=== PATIENT | male | born 1960 | race Caucasian/White ===

== ENCOUNTER → 2020-02-24 | Outpatient (CLI) | payer SELFPAY ==
[~2020-02-24] MED LIST: ATOR10; CARI350; HYDACE5 PO
== END | disposition home or self-care (01) ==
LOC: LAB SHORT 17:23
DX: T24.232D Burn of second degree of left lower leg, subsequent encounter (principal)
CPT/HCPCS: 87070; 87075; 87205

== ENCOUNTER 2023-12-24 11:33 | Emergency (ER) | payer SELFPAY ==
[~2023-12-24] VITALS: Ht 172.7 cm; Wt 90.7 kg
[2023-12-24] MEDS ORDERED: Methocarbamol 500 MG Tab PO ONE (12:15)
[2023-12-24] MEDS ORDERED: Lidocaine 4% 1 Patch TOP ONE (12:15)
[2023-12-24] MEDS ORDERED: Ketorolac Tromethamine 30mg Vial IM ONE (12:15)
[2023-12-24] MEDS ORDERED: FentaNYL Citrate 50 MCG/ML 2 ML Injection IM ONE (12:45)
[2023-12-24] MEDS ORDERED: Robaxin750 MG PO (12:47)
[2023-12-24] MEDS ORDERED: IBUP800 PO (12:47)
[2023-12-24] MEDS ORDERED: HYDROmorphone HCl/Pf 1MG SYR IV ONE (13:45)
[2023-12-24 14:27] LABS: BASOPHILS ABSOLUTE AUTO 0.04 K/mm3 (0.00-0.23); BASOPHILS PERCENT AUTO 0 % (0-2); EOSINOPHILS ABSOLUTE AUTO 0.11 K/mm3 (0.00-0.68); EOSINOPHILS PERCENT AUTO 1 % (0-6); Hematocrit 39.6 % (37.0-53.0); Hemoglobin 13.1 g/dL (13.5-17.5); IMMATURE GRAN ABSOLUTE AUTO 0.03 K/mm3 (0.00-0.10); IMMATURE GRAN PERCENT AUTO 0 % (0-1); LYMPHOCYTES ABSOLUTE AUTO 1.04 K/mm3 (0.84-5.20); LYMPHOCYTES PERCENT AUTO 11 % (21-46); MONOCYTES PERCENT AUTO 14 % (4-13); Mean Corpuscular HGB 31.7 pg (26.0-34.0); Mean Corpuscular HGB Conc 33.1 g/dL (31.5-36.5); Mean Corpuscular Volume 96 fL (80-100); Mean Platelet Volume 10.7 fL (9.1-12.4); NEUTROPHILS ABSOLUTE AUTO 6.85 K/mm3 (1.96-9.15); NEUTROPHILS PERCENT AUTO 73 % (41-73); Platelet Count 277 K/mm3 (150-400); RDW Coefficient Variation 12.8 % (11.7-14.2); Red Blood Cell Count 4.13 M/mm3 (4.30-5.90); White Blood Cell Count 9.37 K/mm3 (4.00-11.30)
[2023-12-24 14:31] LABS: Albumin, Blood 3.3 g/dL (3.4-5.0); Albumin/Globulin Ratio 0.8 (0.8-1.8); Bilirubin, Total 0.4 mg/dL (0.1-1.0); Bun/Creatinine Ratio 30.9 (12.0-20.0); Creatinine, Blood 0.84 mg/dL (0.60-1.20); Globulin, Blood 4.3 g/dL (2.2-4.0); Potassium, Blood 4.7 mmol/L (3.5-5.5); Total Protein, Blood 7.6 g/dL (6.4-8.2)
[2023-12-24] MEDS ORDERED: Diazepam 5 MG / ML 2ML SYR IV ONE (14:50)
[2023-12-24] MEDS ORDERED: Gabapentin 300 MG Cap PO ONE (16:00)
[2023-12-24] MEDS ORDERED: Neurontin 300300 MG PO (17:02)
[2023-12-24] MEDS ORDERED: CYCL10 PO (17:02)
[2023-12-24 17:09] VITALS: BP 147/90
[2023-12-25] MEDS ORDERED: Robaxin750 MG PO (16:34)
[2023-12-25] MEDS ORDERED: LIDOCAINE1 EACH TOP (16:34)
[2023-12-25] MEDS ORDERED: PERCOCET 10-321 EA10 PO (16:34)
== END 2023-12-24 17:09 | disposition home or self-care (01) ==
LOC: ER 11:33
PROVIDERS: Physician Assistant
DX: M54.41 Lumbago with sciatica, right side (principal); M54.10 Radiculopathy, site unspecified; Z79.899 Other long term (current) drug therapy
CPT/HCPCS: 74177; 80053; 85025; 96372-59; 96374-59; 96375; 99284-25; A9270; J1885; J3010; J3360; Q9967

== ENCOUNTER 2023-12-25 13:54 | Emergency (ER) | payer SELFPAY ==
[~2023-12-25] VITALS: Ht 172.7 cm; Wt 90.7 kg
[~2023-12-25 13:54] MED LIST changes: +CYCL10 PO; +IBUP800 PO; +Neurontin 300300 MG PO; +Robaxin750 MG PO
[2023-12-25 16:15] VITALS: BP 110/68
[2023-12-25] MEDS ORDERED: PERCOCET 10-321 EA10 PO (16:34)
[2023-12-25] MEDS ORDERED: LIDOCAINE1 EACH TOP (16:34)
[2023-12-25] MEDS ORDERED: Robaxin750 MG PO (16:34)
== END 2023-12-25 16:45 | disposition home or self-care (01) ==
LOC: ER 13:54
DX: M62.830 Muscle spasm of back (principal); Z79.899 Other long term (current) drug therapy
CPT/HCPCS: 99282